=== PATIENT | female | born 1990 | race Caucasian/White ===

== ENCOUNTER → 2016-07-07 | Outpatient (CLI) | payer OTHER | LOC: LABWC S 16:03 | DX: N91.2 Amenorrhea, unspecified (principal) | CPT/HCPCS: 90004; 90074; 90078; 90261; 90364; 90599; 90600; 90605; 90606; 90710; 90851; 92863; 93140; 98480; 99777 ==

== ENCOUNTER 2016-08-19 10:04 | Outpatient (CLI) | payer OTHER ==
--- NOTE | 2016-08-19 11:07 | DIAGNOSTIC IMAGING REPORT ---
PROCEDURE: US OB DETAILED ANATOMIC INDICATION: ANATOMY TECHNIQUE: Levy scale, color, and spectral Doppler images of the second trimester gravid uterus were obtained. COMPARISON: OB ultrasound 07/23/2013 FINDINGS: A single living intrauterine is in variable presentation. There is regular cardiac activity at a rate of 147 beats per minute. The placenta is anterior and away from the internal cervical os. The cervix is closed measuring approximately 4.3 cm in length. The amniotic fluid volume is subjectively normal. Biparietal diameter 4.1 cm at 18 weeks and 2-day Head circumference 15.6 cm of 18 weeks and 4-day Abdominal circumference 13.2 cm of 18 weeks and 5-day Femur length two point centimeters of 18 weeks and 4-day Head to abdominal circumference ratio and femur length to abdominal circumference ratios are normal. Estimated weight 251 g Composite gestational age 18 weeks and 4 days, DENYS 01/16/2017 There was visualization of a number of normal structures including the intracranial contents, facial features, nuchal region, spine, four-chamber heart and outflow tracts to the extent that could be visualized, diaphragm, fluid-filled stomach, kidneys, abdomen, urinary bladder, upper and lower extremities, and genitals. A three-vessel umbilical cord, normal and placental cord insertion sites were seen. IMPRESSION: 1. Single living intrauterine with a composite gestational age of 18 weeks and 4 days, DENYS 01/16/2017 2. Symmetric and normal anatomy.
== END 2016-08-19 23:00 | disposition home or self-care (01) ==
LOC: US SRH 10:04
DX: Z34.92 Encounter for supervision of normal pregnancy, unspecified, second trimester (principal); Z3A.18 18 weeks gestation of pregnancy